=== PATIENT | male | born 1975 | race African-American/Black ===

== ENCOUNTER 2023-04-25 17:00 | Emergency (ER) | payer MEDICAID, OTHER ==
[~2023-04-25] VITALS: Ht 180.3 cm; Wt 109.0 kg
[~2023-04-25 17:00] MED LIST: ALLO-97 PO; AMLO-257 PO; IBUP-1506 PO
[2023-04-25 17:17] VITALS: TEMP 98.5
[2023-04-25 22:03] VITALS: BP 165/92; PULSE 90; RESP 18
[2023-04-25] MEDS ORDERED: IBUPROFEN 600 MG TABLET PO ONE (22:45)
[2023-04-25] MEDS ORDERED: ACET-3385 PO (23:06)
[2023-04-25] MEDS ORDERED: IBUP-1492 PO (23:06)
== END 2023-04-25 23:13 | disposition home or self-care (01) ==
LOC: EMS 17:09
DX: M10.9 Gout, unspecified (principal); M25.522 Pain in left elbow
CPT/HCPCS: 99283